=== PATIENT | female | born 2000 | race American Indian/Alaskan Native ===

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

== ENCOUNTER 2022-03-22 11:46 | Emergency (ER) | payer OTHER ==
[~2022-03-22] VITALS: Ht 177.8 cm; Wt 91.1 kg
[~2022-03-22 11:46] MED LIST changes: +KEFLEX500 MG PO; +PRENATABS RX T1 EACH PO; +PYRIDOXINE HCL25 MG PO; +UNISOM25 MG PO
[2022-03-22] MEDS ORDERED: TAMIFLU75 MG PO (17:02)
== END 2022-03-22 18:14 | disposition home or self-care (01) ==
LOC: ED 11:46
DX: J10.1 Influenza due to other identified influenza virus with other respiratory manifestations (principal); Z87.891 Personal history of nicotine dependence; Z79.899 Other long term (current) drug therapy; Z20.822 Contact with and (suspected) exposure to COVID-19
CPT/HCPCS: 81001; 87502; 99283; C9803; U0003

== ENCOUNTER 2022-05-27 06:24 | Inpatient (IN) | payer OTHER ==
[~2022-05-27] VITALS: Ht 175.3 cm; Wt 90.7 kg
[~2022-05-27 06:24] MED LIST changes: +TAMIFLU75 MG PO
--- NOTE | 2022-05-27 13:50 | PR ---
[facility] [address] [facility] [place], [place] [address] Signed Progress Notes IP Datetime Report Generated by PUJA: 05/27/2022 13:50 PROGRESS NOTES: [id number] Impression: Normal Progression of Labor Procedures: Artificial ROM; Sterile Vag Exam Plan: Continue Present Management VITAL SIGNS: [id number] EXAM: [id number] Dilatation: 4.0 Effacement: 80 Station: -2 Contractions: occ MEMBRANES: [id number] Comments: S/P epidural placement as she was starting to get uncomfortable. She is progressing well. Will continue. FETUS A: [id number] FHR Baseline: 125 Variability: Moderate 6-25bpm Accelerations: 15X15 Decelerations: None FHR Category: Category I Presentation: Vertex Comments on Fetus A: no evidence of metabolic acidosis FETUS B: [id number] Signing Physician: Ximena Black MD Copies: ~ *Electronically Signed* 05/27/22 1350 XIMENA BLACK MD PATIENT NAME: BACILIO HATHAWAY PROGRESS NOTE DATE OF : 99 PHYSICIAN: XIMENA BLACK MD RPT #: [id number] REPORT IS CONFIDENTIAL AND NOT TO BE RELEASED WITHOUT AUTHORIZATION
--- NOTE | 2022-05-27 16:02 | PR ---
[facility] [address] [place], [place] [address] Signed Progress Notes IP Datetime Report Generated by PUJA: 05/27/2022 16:02 PROGRESS NOTES: [id number] Impression: Normal Progression of Labor; Non-reassuring Heart Rate Procedures: Intrauterine Pressure Catheter; Scalp Electrode; Sterile Vag Exam; Amnio Infusion Plan: Continue Present Management VITAL SIGNS: [id number] EXAM: [id number] Dilatation: 5.0 Effacement: 80 Station: -2 Contractions: occ MEMBRANES: [id number] Comments: Progressing. Recurrent variables. Will begin amnioinfusion and continue position changes. FETUS A: [id number] FHR Baseline: 125 Variability: Moderate 6-25bpm Accelerations: 15X15 Decelerations: None FHR Category: Category I Presentation: Vertex Comments on Fetus A: no evidence of metabolic acidosis FETUS B: [id number] Signing Physician: Ximena Black MD Copies: ~ *Electronically Signed* 05/27/22 1602 XIMENA BLACK MD PATIENT NAME: KARIE HATHAWAYGABI FOSTEREN PROGRESS NOTE DATE OF : 99 PHYSICIAN: XIMENA BLACK MD RPT #: [id number] REPORT IS CONFIDENTIAL AND NOT TO BE RELEASED WITHOUT AUTHORIZATION
--- NOTE | 2022-05-27 17:33 | PR ---
[facility] [address] [facility] [place], [place] [address] Signed Progress Notes IP Datetime Report Generated by PUJA: 05/27/2022 17:33 PROGRESS NOTES: [id number] Impression: Normal Progression of Labor; Reassuring Heart Rate Procedures: Sterile Vag Exam Plan: Continue Present Management VITAL SIGNS: [id number] EXAM: [id number] Dilatation: 6.0 Effacement: 80 Station: -2 Contractions: occ MEMBRANES: [id number] Comments: status reassuring. She is comfortable and progressing. Will continue. FETUS A: [id number] FHR Baseline: 125 Variability: Moderate 6-25bpm Accelerations: 15X15 Decelerations: None FHR Category: Category I Presentation: Vertex Comments on Fetus A: no evidence of metabolic acidosis FETUS B: [id number] Signing Physician: Ximena Black MD Copies: ~ *Electronically Signed* 05/27/22 1733 XIMENA BLACK MD PATIENT NAME: BACILIO HATHAWAY PROGRESS NOTE DATE OF : 99 PHYSICIAN: XIMENA BLACK MD RPT #: [id number] REPORT IS CONFIDENTIAL AND NOT TO BE RELEASED WITHOUT AUTHORIZATION
--- NOTE | 2022-05-28 08:28 | PR ---
[facility] [address] [facility] [place], [place] [address] Signed PP Progress Notes Datetime Report Generated by PUJA: 05/28/2022 08:27 SUBJECTIVE: [id number] Pain: Within Normal Limits Nausea/Vomiting: Denies Vital Signs: [id number] Vital Signs: Reviewed; Within Normal Limits Cardiovascular: Not Done Respiratory: Not Done Abdomen/Uterus: Abnormal Lochia: Normal Vulva/Perineum: Not Done Breasts: Not Done CVA Tenderness: Not Done Extremities: Normal Incision: Not Applicable Progress: Normal Exam Comments: Fundus firm, NT @ U-1. H/H 10.1/30.3, WBC 10.6, plat 155k IMPRESSION/PLAN/PROCEDURES: [id number] Impression: Normal Progression Plan: Discharge Procedures: Rhogam Progress Notes: Doing well. She desires discharge this evening. Signing Physician: Ximena Black MD Copies: ~ *Electronically Signed* 05/28/22826 XIMENA BLACK MD PATIENT NAME: BACILIO HATHAWAY PROGRESS NOTE DATE OF : 99 PHYSICIAN: XIMENA BLACK MD RPT #: [id number] REPORT IS CONFIDENTIAL AND NOT TO BE RELEASED WITHOUT AUTHORIZATION
== END 2022-05-28 22:03 | disposition home or self-care (01) | DRG 807 ==
LOC: FBC 06:24
PROVIDERS: ADMIT Obstetrics & Gynecology; ATTEND Obstetrics & Gynecology
PROC: 10E0XZZ Delivery of Products of Conception, External Approach (ICD-10-PCS; principal; 2022-05-27)
PROC: 10907ZC Drainage of Amniotic Fluid, Therapeutic from Products of Conception, Via Natural or Artificial Opening (ICD-10-PCS; 2022-05-27)
PROC: 3E0R3BZ Introduction of Anesthetic Agent into Spinal Canal, Percutaneous Approach (ICD-10-PCS; 2022-05-27)
PROC: 00HU33Z Insertion of Infusion Device into Spinal Canal, Percutaneous Approach (ICD-10-PCS; 2022-05-27)
PROC: 3E0334Z Introduction of Serum, Toxoid and Vaccine into Peripheral Vein, Percutaneous Approach (ICD-10-PCS; 2022-05-27)
PROC: 3E0DXGC Introduction of Other Therapeutic Substance into Mouth and Pharynx, External Approach (ICD-10-PCS; 2022-05-27)
DX: O26.893 Other specified pregnancy related conditions, third trimester (principal); Z37.0 Single live birth; O76 Abnormality in fetal heart rate and rhythm complicating labor and delivery; Z3A.39 39 weeks gestation of pregnancy; Z79.899 Other long term (current) drug therapy; Z86.19 Personal history of other infectious and parasitic diseases; Z87.891 Personal history of nicotine dependence; Z87.19 Personal history of other diseases of the digestive system; O69.1XX0 Labor and delivery complicated by cord around neck, with compression, not applicable or unspecified; Z67.11 Type A blood, Rh negative
CPT/HCPCS: 36415; 83030; 85027; 86850; 86900; 86901; A9270; J2001; J2590; J2790; J2795; J3010; J3105; J7121

== ENCOUNTER 2022-06-05 14:21 | Day surgery (SDC) | payer OTHER ==
[~2022-06-05] VITALS: Ht 177.8 cm; Wt 90.9 kg
--- NOTE | 2022-06-05 14:40 | NUR ---
RT COLLECTED RAPID COVID 19, RSV, AND FLU SWAB PER DR REQUEST USING IN HOUSE LAB WITH NO COMPLICATIONS AT THIS TIME.
[2022-06-05] MEDS ORDERED: TYLENOL EXTRA500 MG PO (14:41)
--- NOTE | 2022-06-05 17:29 | NUR ---
06/05/22 1729 Tigist Wong 1620 PT ARRIVED IN PACU SLEEPY. 1645 RESTING. REU. NO C/O'S. 1700 PT WANTING TO GO HOME. STOOD AT SIDE OF BED AND WALKED AROUND DEPT WITH NO PROBLEMS. 1715 SIPPING ON WATER. DC INSTRUCTIONS GIVEN TO PT/FRIEND. LEFT VIA W/C.
--- NOTE | 2022-06-06 05:56 | OR ---
[facility] [address] [place], [place] [address] Signed DATE OF OPERATION: 06/05/2022 SURGEON: Ximena Black MD PREOPERATIVE DIAGNOSIS: Large left Bartholin abscess. POSTOPERATIVE DIAGNOSIS: Large left Bartholin abscess. PROCEDURE: I and D of left Bartholin abscess with marsupialization. ANESTHESIA: Saddle block with IV sedation. ESTIMATED BLOOD LOSS: Minimal. DRAINS: None. INDICATIONS AND FINDINGS: The patient is a 21-year-old female, who had a vaginal delivery nine days ago, who presented to the office today with pain from a left Bartholin gland abscess which began on Friday. In the office, she was noted to have extreme swelling of the left labia to the upper aspect of the labia majora on the left side. Attempted I and D was made in the office but was unsuccessful secondary to the patient's discomfort. At the time of surgery, again, there was noted extreme swelling. The I and D was done and there was a large amount of foul smelling purulent material which was obtained. The cavity extended into the upper left labia majora. DESCRIPTION OF PROCEDURE: The patient was prepped and draped in the dorsal lithotomy position. An incision was made at the lower aspect of the left labia majora just outside the hymenal ring. This was done with the knife. A large amount of purulent material immediately came out. After the cavity was significantly drained, pressure was also placed on the labia to be sure the entire cavity was clear. The cavity was rinsed with saline multiple times to assure that there was no remaining purulent material. The incision was extended slightly and the edges of the incision were sutured with interrupted sutures of Electronically Signed By: XIMENA BLACK MD 06/06/22 0556 PATIENT NAME: BACILIO HATHAWAY OPERATIVE REPORT DATE OF : 99 REPORT #: [id number] PHYSICIAN: XIMENA BLACK MD PCP: XIMENA BLACK MD REPORT IS CONFIDENTIAL AND NOT TO BE RELEASED WITHOUT AUTHORIZATION [facility] [address] [facility], [place] [address] Signed 3-0 Vicryl to the cyst capsule in an effort to maintain an opening to the gland. At the conclusion of the procedure, the area was injected with 0.5% Marcaine plain to 10 mL. All sponge and needle counts were correct. She tolerated the procedure well and was taken to the recovery room in good condition. Ximena Black MD PJW/MODL /[id number] Copies: ~ Electronically Signed By: XIMENA BLACK MD 06/06/22 0556 PATIENT NAME: BACILIO HATHAWAY OPERATIVE REPORT DATE OF : 99 REPORT #: [id number] PHYSICIAN: XIMENA BLACK MD PCP: XIMENA BLACK MD REPORT IS CONFIDENTIAL AND NOT TO BE RELEASED WITHOUT AUTHORIZATION
== END 2022-06-05 17:15 | disposition home or self-care (01) ==
LOC: DS 14:21
PROVIDERS: ATTEND Obstetrics & Gynecology
PROC: 0U9L00Z Drainage of Vestibular Gland with Drainage Device, Open Approach (ICD-10-PCS; 2022-06-05)
PROC: 0U9L00Z Drainage of Vestibular Gland with Drainage Device, Open Approach (ICD-10-PCS; principal; 2022-06-05 15:30)
DX: N75.0 Cyst of Bartholin's gland (principal); N75.1 Abscess of Bartholin's gland; A56.00 Chlamydial infection of lower genitourinary tract, unspecified; Z30.41 Encounter for surveillance of contraceptive pills; F17.210 Nicotine dependence, cigarettes, uncomplicated; Z20.822 Contact with and (suspected) exposure to COVID-19
CPT/HCPCS: 36415; 85025; 87502; C9803; J0690; J1100; J1885; J2001; J2250; J2405; J2704; J7121; U0003